=== PATIENT | female | born 1995 | race Two or more races ===

== ENCOUNTER 2024-09-02 11:47 | Outpatient (REF) | payer MEDICAID, SELFPAY ==
[2024-09-02 13:20] LABS: MANUAL DIFF FLAG NO
[2024-09-02 13:28] LABS: Basophils Percent Auto 0.8 % (0-2); Eosinophils Absolute Auto 0.1 X10*3/uL (0.0-0.4); Eosinophils Percent Auto 1.4 % (0-4); Hematocrit 40.1 % (37.0-47.0); Imm Gran Abs Auto 0.01 X10*3/uL (0.00-0.03); Imm Gran Pct Auto 0.3 % (0.0-0.4); Lymphocytes Absolute Auto 1.9 X10*3/uL (1.2-4.9); Lymphocytes Percent Auto 52.7 % (20-40); Mean Corpuscular HGB Conc 32.4 g/dl (31.0-35.0); Mean Corpuscular Hemoglobin 27.9 pg (27.0-33.0); Mean Corpuscular Volume 86.1 fL (80.0-98.0); Mean Platelet Volume 11.1 fL (9.4-12.3); Monocytes Absolute Auto 0.3 X10*3/uL (0.1-1.2); Monocytes Percent Auto 7.3 % (2-11); Neutrophils Absolute Auto 1.4 x10*3/uL (2.0-8.3); Neutrophils Percent Auto 37.5 % (45-73); Platelet Count 265 X10*3/uL (160-400); Red Blood Count 4.66 X10*6/uL (4.20-5.50); Red Cell Distribution Width 12.3 % (11.0-16.0); White Blood Count 3.7 X10*3/uL (4.8-10.8)
[2024-09-02 13:40] LABS: Estimated Average Glucose 97 mg/dL; Hemoglobin A1C 111.3321 umol/L; Total Hemoglobin (HGBA1C) 3522.9772 umol/L
[2024-09-02 14:16] LABS: Alanine Aminotransferase 33 U/L (0-31); Albumin Level 4.3 g/dL (3.5-5.0); Anion Gap 12 (12-20); Aspartate Amino Transferase 28 U/L (5-31); Bilirubin Total 0.7 mg/dL (0.0-1.0); Blood Urea Nitrogen 14 mg/dL (9-16); Calcium 9.5 mg/dL (8.4-10.2); Carbon Dioxide 24 mmol/L (22-29); Chloride 108 mmol/L (96-108); Estimated Glomerular Filt Rate > 60; Glucose Random 80 mg/dL (60-115); Potassium 3.8 mmol/L (3.3-5.1); Sodium 140 mmol/L (135-145); Total Protein 7.6 g/dL (6.5-8.0)
[2024-09-02 14:25] LABS: TSH reflex Free T4 0.94 uIU/mL (0.32-4.0)
--- OUTSIDE RECORDS SUMMARY | 2024-09-02 14:42 | XMS_ITS | Encounter Summary ---
Author Organization [employer] Address [address] [facility] [address] [place] [address] Care Team Providers Care Metal Solderer Name Role Phone Unavailable Primary Care Provider Unavailabl e Reason for Referral * Imaging (Routine) - Pending Review Specialty Diagnoses / Procedures Referred By Contac t Referred To Contact Radiology Diagnoses Epigastric pain Procedures US Abdomen Complete Horacio He MD [address] [place] [address] Phone: tel: fax: Referral ID Status Reason Start Date Expiration Date V isits Requested Visits Authorized [id number] Pending Review 09/02/2024 09/02/2025 1 1 Encounter Details Date Type Department Care Team (Late st Contact Info) Description 09/02/2024 Orders Only [facility] [address] [place], [place] [phone] Horacio He MD [address] [place], [place] [phone] Epigastric pain (Primary Dx) Social History Tobacco Use Types Packs/Day Years Used Date Smoking Tobacco: Never Smokeless Tobacco: Never Alcohol Use Standard Drinks/Week Comments Never 0 (1 standard drink = 0.6 oz pur e alcohol) Comments Unknown Sex and Gender Information Value Date Recorded Sex Assigned at Female 09/02/2024 10:17 AM EDT Legal Sex Female 11:50 AM EDT Gender Identity Female 09/02/2024 10:17 AM EDT Sexual Orientation Straight 09/02/2024 10 :17 AM EDT documented as of this encounter Plan of Treatment Scheduled Orders Name Type Priority Associated Diagnoses Orde r Schedule US Abdomen Complete Imaging Routine Epigastric pain Expected: 09/02/2024, Expires: 09/02/2025 documented as of this encounter Visit Diagnoses Diagnosis Epigastric pain- Primary Abdominal pain, epigastric documented in this encounter
--- OUTSIDE RECORDS SUMMARY | 2024-09-02 14:42 | XMS_ITS | Encounter Summary ---
Author Organization [employer] Address [address] [facility] [address] [place] [address] Care Team Providers Care Density Control Puncher Name Role Phone Unavailable Primary Care Provider Unavailabl e Encounter Details Date Type Department Care Team (Latest Contact Info) Description 09/02/2024 Travel Social History Tobacco Use Types Packs/Day Years [...] as of this encounter Plan of Treatment Not on file documented as of this encounter Visit Diagnoses Not on filedocumented in this encounter
--- OUTSIDE RECORDS SUMMARY | 2024-09-02 14:42 | XMS_ITS | Encounter Summary ---
Author Organization [employer] Address [address] [facility] [address] [place] [address] Care Team Providers Care Internal Affairs Commander Name Role Phone Unavailable Primary Care Provider Unavailabl e Reason for Visit * Reason Comments Abdominal Pain Encounter Details Date Type Department Care Team (Late st Contact Info) Description 09/02/2024 10:40 AM EDT Office Visit [facility] [address] [place], [place] [phone] Horacio He MD [address] [place], [place] [phone] Epigastric pain (Primary Dx); Posterior chest pain; Geographic tongue Social History Tobacco Use Types Packs/Day Years Used Date Smoking Tobacco: Never Smokeless Tobacco: Never Tobacco Cessation:Counseling Given: Not Answered Alcohol Use Standard Drinks/Week Comments Never 0 (1 standard drink = 0.6 oz pur e alcohol) Comments Unknown Sex and Gender Information Value Date Recorded Sex Assigned at Female 09/02/2024 10:17 AM EDT Legal Sex Female 11:50 AM EDT Gender Identity Female 09/02/2024 10:17 AM EDT Sexual Orientation Straight 09/02/2024 10 :17 AM EDT documented as of this encounter Last Filed Vital Signs Vital Sign Reading Time Taken Comments Blood Pressure 134/74 09/02/2024 10:32 AM EDT Pulse 102 09/02/2024 10:32 AM EDT Temperature 38 ??C (100.4 ??F) 09/02/2024 10 :32 AM EDT Respiratory Rate 17 09/02/2024 10:3 2 AM EDT Oxygen Saturation 95% 09/02/2024 10: 32 AM EDT Inhaled Oxygen Concentration - - Weight 93.4 kg (205 lb 12.8 oz) 025 10:32 AM EDT Height - - Body Mass Index - - documented in this encounter Progress Notes * Horacio He MD - 09/02/2024 10:40 AM EDT Images from the original note were not included. Subjective Patient ID: Mustapha Carroll is a 29 y.o. female new patient. 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 Traveled from [place] to [facility] to [place]. Came to [facility] 10/2023. Sales Marketing Manager: Breanne FONTANA Mustapha came to [facility] today because when she was 6 months 1 year ago she she had onset of epigastric pain that radiates to mid back, usually occurs daily after dinner. Epigastric pain is not present now, but she has mild mid upper back pain, worse with movement of torso. Deep inspiration does not change the pain. Has occasional n/v with pain. No fever, cough, URI symptoms, diarrhea, urinary sx. No h/o abd surgery. No family h/o gallstones. Also states that during she developed unusual pattern on her tongue that occasionally hurts when she eats. Lives with and 2 children. LMP=irreg due to Nexplanon. Never smoked. No EtOH. No illicit substances. Has also had areas on dorsum of tongue that are occasionally painful that also started during . The following portions of the chart were reviewed this encounter and updated as appropriate: Review of Systems Constitutional: Negative for fever. Respiratory: Negative for shortness of breath. Cardiovascular: Negative for chest pain. Gastrointestinal: Positive for abdominal pain, nausea and vomiting. Negative for diarrhea. Musculoskeletal: Positive for back pain. Skin: Negative for rash. Neurological: Negative for headaches. Objective Physical Exam HENT: Mouth/Throat: Comments: Tongue: Several areas on the dorsum of confluence irregular flattened areas with no erythema. Abdominal: General: Abdomen is flat. Palpations: Abdomen is soft. Tenderness: There is no abdominal tenderness. There is no right CVA tenderness or left CVA tenderness. Musculoskeletal: Arms: Comments: Mild tenderness to palpation noted in mid upper back as noted above. Procedures Assessment/Plan Diagnoses and all orders for this visit: Epigastric pain UCG neg. U/a neg except for positive RBC. Negative rapid Covid and Influenza tests done because of fever in walk-in clinic. Prescribed acetaminophen. Blood tests, H. pylori stool antigen test ordered. Chest x-ray and abdominal ultrasound ordered. Will call patient with results. Go to ED if pain recurs and does not resolve. I requested [facility] [facility] PCP sharon't. - POCT Rapid COVID Ag - Influenza A (ID NOW Rapid Molecular) - Influenza B (ID NOW Rapid Molecular) - POCT urinalysis dipstick manually resulted - POCT , urine manually resulted - Helicobacter pylori Antigen, EIA, Stool; Future - Hepatitis B Core Antibody, Total; Future - Hepatitis B Surface Antibody, Qualitative; Future - Hepatitis B surface antigen, EIA; Future - Hepatitis C Antibody with Reflex to HCV, RNA, Quantitative, Real-Time PCR; Future - HIV-1/2 Antigen and Antibodies, Fourth Generation, with Reflexes; Future - RPR (Monitor) with Reflex to Titer; Future - T-SPOT??.TB; Future - CBC auto differential; Future - Comprehensive Metabolic Panel; Future - Hemoglobin A1c; Future - TSH with Reflex to Free T4; Future Posterior chest pain Chest x-ray ordered as above. Will call patient with results - XR Chest 2 Views; Future Geographic tongue Prescribed triamcinolone 0.1% oral paste to use as needed for tongue pain. Return to clinic if symptoms worsen. Other orders - triamcinolone (Kenalog) 0.1 % oral paste; Use in the mouth or throat 2 times daily. prn - acetaminophen (Tylenol) 500 MG tablet; Take 2 tablets (1,000 mg) by mouth every 6 (six) hours if needed for moderate pain or fever for up to 25 doses. documented in this encounter Plan of Treatment Pending Results Name Type Priority Associated Diagnoses Date /Time Comprehensive Metabolic Panel Lab Routine Epigastric pain 09/02/2024 11:53 AM EDT TSH with Reflex to Free T4 Lab Routine Epigastric pain 09/02/2024 11:53 AM EDT Scheduled Orders Name Type Priority Associated Diagnoses Orde r Schedule Helicobacter pylori??Antigen, EIA, Stool Lab Routine Epigastric pain Expected: 09/02/2024 (Approximate), Expires: 09/02/2025 Hepatitis B Core Antibody, Total Lab Routine Epigastric pain Expected: 09/02/2024 (Approximate), Expires: 09/02/2025 Hepatitis B Surface Antibody, Qualitative Lab Routine Epigastric pain Expected: 09/02/2024 (Approximate), Expires: 09/02/2025 Hepatitis B surface antigen, EIA Lab Routine Epigastric pain Expected: 09/02/2024 (Approximate), Expires: 09/02/2025 Hepatitis C Antibody with Reflex to HCV, RNA, Quantitative, Real-Time PCR Lab Routine Epigastric pain Expected: 09/02/2024 (Approximate), Expires: 09/02/2025 HIV-1/2 Antigen and Antibodies, Fourth Generation, with Reflexes Lab Routine Epigastric pain Expected: 09/02/2024 (Approximate), Expires: 09/02/2025 RPR (Monitor) with Reflex to??Titer Lab Routine Epigastric pain Expected: 09/02/2024 (Approximate), Expires: 09/02/2025 T-SPOT??.TB Lab Routine Epigastric pain Expected: 09/02/2024 (Approximate), Expires: 09/02/2025 XR Chest 2 Views Imaging Routine Posterior chest pain Expected: 09/02/2024, Expires: 09/02/2025 documented as of this encounter Procedures Procedure Name Priority Date/Time Associated Diagnosis Comments TSH W/REFLEX TO FT4 Routine 09/02/2024 1 1:53 AM EDT Epigastric pain CBC WITH AUTO DIFFERENTIAL Routine 09/02/2024 11:53 AM EDT Epigastric pain HEMOGLOBIN A1C Routine 09/02/2024 11:53 AM EDT Epigastric pain COMPREHENSIVE METABOLIC PANEL Routine 09/02/2024 11:53 AM EDT Epigastric pain POCT INFLUENZA B (ID NOW RAPID MOLECULAR) Routine 09/02/2024 11:10 AM EDT Epigastric pain POCT INFLUENZA A (ID NOW RAPID MOLECULAR) Routine 09/02/2024 11:10 AM EDT Epigastric pain POCT RAPID COVID ANTIGEN Routine 09/02/2024 11:10 AM EDT Epigastric pain POCT , URINE Routine 09/02/2024 11:10 AM EDT Epigastric pain POCT URINALYSIS DIPSTICK Routine 09/02/2024 11:10 AM EDT Epigastric pain documented in this encounter Results * Hemoglobin A1c (09/02/2024 11:53 AM EDT) Hemoglobin A1c 5.0 <6.0 % [facility] Comment:Hemoglobin A1C Refer ence Range Adults: 4.8 - 6.0 % Non diabetic: < 6.0 % Goal: < 7.0 %Additional Action Suggested: > 8.0 %Note: Hemoglobin A1c results are invalid for patients with abnormal amounts of HbF. Blood transfusions may impact the HbA1c concentration in the patient sample. Estimated Average Glucose 97 mg/dL [facility] Comment:eAG = Estimated ave rage glucose which is %A1C expressed asaverage glucose, using the formula of the Y4L-LcaydffRarwhoi Glucose study (ADAG), Diabetes Care, Vol.31,#8,Dec. 2007 Blood Venous blood specimen / Unknown 09/02/2024 11:53 AM EDT 09/02/2024 1:13 PM EDT us Horacio He MD LAB BLOOD ORDERABLES Final Resul t [facility] [address] [place] [phone] * (ABNORMAL) CBC auto differential (09/02/2024 11:53 AM EDT) White Blood Count 3.7(L) 4.8 - 10.8 X10*3/uL [facility] Red Blood Count 4.66 4.20 - 5.50 X10*6/uL [facility] Hemoglobin 13.0 12.0 - 16.0 g/dl [facility] Hematocrit 40.1 37.0 - 47.0 % [facility] Mean Corpuscular Volume 86.1 80.0 - 98.0 fL [facility] Mean Corpuscular Hemoglobin 27.9 27.0 - 33.0 pg [facility] Mean Corpuscular HGB Conc 32.4 31.0 - 35.0 g/dl [facility] Red Cell Distribution Width 12.3 11.0 - 16.0 % [facility] Platelet Count 265 160 - 400 X10*3/uL [facility] Mean Platelet Volume 11.1 9.4 - 12.3 fL [facility] Neutrophils Percent Auto 37.5(L) 45 - 73 % [facility] Imm Gran Pct Auto 0.3 0.0 - 0.4 % [facility] Lymphocytes Percent Auto 52.7(H) 20 - 40 % [facility] Monocytes Percent Auto 7.3 2 - 11 % [facility] Eosinophils Percent Auto 1.4 0 - 4 % [facility] Basophils Percent Auto 0.8 0 - 2 % [facility] NRBC Pct Auto 0.0 0.0 - 0.2 /100WBC [facility] Neutrophils Absolute Auto 1.4(L) 2.0 - 8.3 x10*3/uL [facility] Imm Gran Abs Auto 0.01 0.00 - 0.03 X10*3/uL [facility] Lymphocytes Absolute Auto 1.9 1.2 - 4.9 X10*3/uL [facility] Monocytes Absolute Auto 0.3 0.1 - 1.2 X10*3/uL [facility] Eosinophils Absolute Auto 0.1 0.0 - 0.4 X10*3/uL [facility] Basophils Absolute Auto 0.0 0.0 - 0.2 X10*3/uL [facility] NRBC Abs Auto 0.000 0.0 - 0.012 X10*3/uL [facility] Blood Venous blood specimen / Unknown 09/02/2024 11:53 AM EDT 09/02/2024 1:13 PM EDT us Horacio He MD LAB BLOOD ORDERABLES Final Resul t [facility] [address] [place] [address] [phone] * POCT , urine manually resulted (09/02/2024 11:10 AM EDT) Preg Test, Ur Negative Negative, Indeterminate, None Detected, Invalid, Specimen unsatisfactory for evaluation, Weakly Positive Urine 09/02/2024 11:1 0 AM EDT us Horacio He MD POINT OF CARE TEST ENTER/EDIT OR DERABLES Final Result * (ABNORMAL) POCT urinalysis dipstick manually resulted (09/02/2024 11:10 AM EDT) Pathologist [facility] Color, UA Yellow Clarity, UA Clear Glucose, UA Negative Bilirubin, UA Negative Ketones, UA Negative Spec Grav, UA 1.020 Blood, UA Positive(A) Negative, None Detected Comment:Trace- intact pH, UA 5.5 Protein, UA Negative Urobilinogen, UA 1.0 Leukocytes, UA Negative Negative, Rare, Trace Nitrite, UA Negative Negative, None Detected Urine 09/02/2024 11:1 0 AM EDT us Horacio He MD POINT OF CARE TEST ENTER/EDIT OR DERABLES Final Result * Influenza B (ID NOW Rapid Molecular) (09/02/2024 11:10 AM EDT) [facility] Influenza B Negative Negative, Indeterminate [facility] Swab 09/02/2024 11:1 0 AM EDT us Horacio He MD POINT OF CARE TEST ENTER/EDIT OR DERABLES Final Result Performing Organization Address [facility]/ZIP Co de Phone Number [facility] [address] [place] [phone] * Influenza A (ID NOW Rapid Molecular) (09/02/2024 11:10 AM EDT) [facility] Influenza A Negative Negative, Indeterminate [facility] Swab 09/02/2024 11:1 0 AM EDT us Horacio He MD POINT OF CARE TEST ENTER/EDIT OR DERABLES Final Result Performing Organization Address City/[facility]/ZIP Co de Phone Number [facility] [address] [place] [address] [phone] * POCT Rapid COVID Ag (09/02/2024 11:10 AM EDT) Rapid COVID Ag Negative [facility] Swab 09/02/2024 11:1 0 AM EDT Horacio He MD POINT OF CARE TEST ENTER/EDIT OR DERABLES Final Result Performing Organization Address City/[facility] Co de Phone Number [facility] [address] [place] [address] [phone] documented in this encounter Visit Diagnoses Diagnosis Epigastric pain- Primary Abdominal pain, epigastric Posterior chest pain Geographic tongue documented in this encounter
--- OUTSIDE RECORDS SUMMARY | 2024-09-02 14:42 | XMS_ITS | Encounter Summary ---
Author Organization [employer] Address [address] [facility] [address]t [place] [address] Care Team Providers Care Millinery Copyist Name Role Phone Unavailable Primary Care Provider Unavailabl e Reason for Visit * Reason Onset Date Comments Appointment 09/02/2024 Patient is a new patient and needs a new patient appointment. Encounter Details Date Type Department Care Team (Late st Contact Info) Description 09/02/2024 Telephone [facility] [address] [place], [place] [phone] Pérez Mcbride [place] Appointment (Patient is a new patient and needs a new patient appointment.) Social History Tobacco Use Types Packs/Day Years [...] AM EDT documented as of this encounter Miscellaneous Notes * Telephone Encounter - Paulina España - 09/02/2024 10:24 AM EDT Zero availability. Patient added to [facility] New Patient wait list as of 09/02/24. * Telephone Encounter - Pérez Mcbride [place] - 09/02/2024 10:22 AM EDT Patient is a new patient and needs a new patient appointment. documented in this encounter Plan of Treatment Not on file documented as of this encounter Visit Diagnoses Not on filedocumented in this encounter
--- OUTSIDE RECORDS SUMMARY | 2024-09-02 14:42 | XMS_ITS | Clinical Summary ---
Author Organization [employer] Address [address] [facility] 7t [place] [address] Care Team Providers Care Billboard Erector Helper Name Role Phone Unavailable Primary Care Provider Unavailabl e Allergies No known active allergies Medications triamcinolone (Kenalog) 0.1 % oral paste Use in the mouth or throat 2 times daily. prn 5 g 1 09/02/2024 09/03/19 26 Active acetaminophen (Tylenol) 500 MG tablet Take 2 tablets (1,000 mg) by mouth every 6 (six) hours if needed for moderate pain or fever for up to 25 doses. 50 tablet 09/02/2024 Active Active Problems Problem Noted Date Diagnosed Date Geographic tongue 09/02/2024 Encounters Date Type Department Care Team Description 09/02/2024 10:40 AM EDT Office Visit [facility] [address] [place] [phone] Horacio He MD Epigastric pain (Primary Dx); Posterior chest pain; Geographic tongue 09/02/2024 Orders Only [facility] [address] [place] [address] [phone] Horacio He MD Epigastric pain (Primary Dx) 09/02/2024 Telephone [facility] [address] [place] [phone] Mcbride, [place], [place] Appointment (Patient is a new patient and needs a new patient appointment.) 09/02/2024 Travel from Last 3 Months Social History Tobacco Use Types Packs/Day Years [...] Orientation Straight 09/02/2024 10 :17 AM EDT Last Filed Vital Signs Vital Sign Reading [...] - - Body Mass Index - - Plan of Treatment Health Maintenance Due Date Last Done Comments Depression Screening 1995 HIV Screening 1995 SDOH Screening 1995 Alcohol/Substance Use Screening 2007 Family Planning (PISQ) 2010 Hepatitis C Screening 2013 DTaP/Tdap/Td Vaccines (1 - Tdap) 2014 Hepatitis B Vaccines (1 of 3 - 19+ 3-dose series) 2014 Pap Smear 2016 COVID-19 Vaccine (1 - 2023-2 5 season) 2024 Influenza Vaccine (#1) 2024 Tobacco Screening 09/02/2025 09/02/2024 Zoster Vaccines (1 of 2) 2045 RSV Patients and Pa tients Aged 60 years or older (1 - 1-dose 75+ series) 2070 HIB Vaccines Aged Out No longer eligi ble based on patient's age to complete this topic HPV Vaccines Aged Out No longer eligi ble based on patient's age to complete this topic Hepatitis A Vaccines Aged Out No long er eligible based on patient's age to complete this topic IPV Vaccines Aged Out No longer eligi ble based on patient's age to complete this topic Meningococcal Vaccine Aged Out No agueda juanpablo eligible based on patient's age to complete this topic Pneumococcal Vaccine: Pediat rics (0 to 5 Years) and At-Risk Patients (6 to 49) Years) Aged Out No longer elig ible based on patient's age to complete this topic RSV under 20 months Aged Out No longe r eligible based on patient's age to complete this topic Rotavirus Vaccines Aged Out No longer eligible based on patient's age to complete this topic Procedures Procedure Name Priority Date/Time Associated Diagnosis Comments TSH W/REFLEX TO FT4 Routine 09/02/2024 1 1:53 AM EDT Epigastric pain HEMOGLOBIN A1C Routine 09/02/2024 11:53 AM EDT Epigastric pain COMPREHENSIVE METABOLIC PANEL Routine 09/02/2024 11:53 AM EDT Epigastric pain CBC WITH AUTO DIFFERENTIAL Routine 09/02/2024 11:53 AM EDT Epigastric pain POCT , URINE Routine 09/02/2024 11:10 AM EDT Epigastric pain POCT URINALYSIS DIPSTICK Routine 09/02/2024 11:10 AM EDT Epigastric pain POCT INFLUENZA B (ID NOW RAPID MOLECULAR) Routine 09/02/2024 11:10 AM EDT Epigastric pain POCT INFLUENZA A (ID NOW RAPID MOLECULAR) Routine 09/02/2024 11:10 AM EDT Epigastric pain POCT RAPID COVID ANTIGEN Routine 09/02/2024 11:10 AM EDT Epigastric pain from Last 3 Months Results * (ABNORMAL) CBC auto differential (09/02/2024 11:53 AM EDT) White Blood Count 3.7(L) 4.8 - 10.8 X10*3/uL [facility] Red Blood Count 4.66 4.20 - 5.50 X10*6/uL [facility] Hemoglobin 13.0 12.0 - 16.0 g/dl [facility] Hematocrit 40.1 37.0 - 47.0 % [facility] Mean Corpuscular Volume 86.1 80.0 - 98.0 fL [facility] Mean Corpuscular Hemoglobin 27.9 27.0 - 33.0 pg [facility] Mean Corpuscular HGB Conc 32.4 31.0 - 35.0 g/dl [facility] Red Cell Distribution Width 12.3 11.0 - 16.0 % [facility] Platelet Count 265 160 - 400 X10*3/uL [facility] Mean Platelet Volume 11.1 9.4 - 12.3 fL [facility] Neutrophils Percent Auto 37.5(L) 45 - 73 % [facility] Imm Gran Pct Auto 0.3 0.0 - 0.4 % [facility] Lymphocytes Percent Auto 52.7(H) 20 - 40 % [facility] Monocytes Percent Auto 7.3 2 - 11 % [facility] Eosinophils Percent Auto 1.4 0 - 4 % [facility] Basophils Percent Auto 0.8 0 - 2 % [facility] NRBC Pct Auto 0.0 0.0 - 0.2 /100WBC [facility] Neutrophils Absolute Auto 1.4(L) 2.0 - 8.3 x10*3/uL [facility] Imm Gran Abs Auto 0.01 0.00 - 0.03 X10*3/uL [facility] Lymphocytes Absolute Auto 1.9 1.2 - 4.9 X10*3/uL [facility] Monocytes Absolute Auto 0.3 0.1 - 1.2 X10*3/uL [facility] Eosinophils Absolute Auto 0.1 0.0 - 0.4 X10*3/uL [facility] Basophils Absolute Auto 0.0 0.0 - 0.2 X10*3/uL [facility] NRBC Abs Auto 0.000 0.0 - 0.012 X10*3/uL [facility] Blood Venous blood specimen / Unknown 09/02/2024 11:53 AM EDT 09/02/2024 1:13 PM EDT us Horacio He MD LAB BLOOD ORDERABLES Final Resul t [facility] [address] [place], [place] [phone] * Hemoglobin A1c (09/02/2024 11:53 AM EDT) Hemoglobin A1c 5.0 <6.0 % [facility] Comment:Hemoglobin A1C Refer ence Range Adults: 4.8 - 6.0 % Non diabetic: < 6.0 % Goal: < 7.0 %Additional Action Suggested: > 8.0 %Note: Hemoglobin A1c results are invalid for patients with abnormal amounts of HbF. Blood transfusions may impact the HbA1c concentration in the patient sample. Estimated Average Glucose 97 mg/dL [facility] Comment:eAG = Estimated ave rage glucose which is %A1C expressed asaverage glucose, using the formula of the C9G-VbdfuoxNbzovak Glucose study (ADAG), Diabetes Care, Vol.31,#8,2007 Blood Venous blood specimen / Unknown 09/02/2024 11:53 AM EDT 09/02/2024 1:13 PM EDT us Horacio He MD LAB BLOOD ORDERABLES Final Resul t Performing Organization Address [facility]/ZIP Co de Phone Number [facility] [address] [place] [phone] * Influenza B (ID NOW Rapid Molecular) (09/02/2024 11:10 AM EDT) [facility] Influenza B Negative Negative, Indeterminate [facility] Swab 09/02/2024 11:1 0 AM EDT us Horacio He MD POINT OF CARE TEST ENTER/EDIT OR DERABLES Final Result Performing Organization Address [facility] Co de Phone Number [facility] [address] [place] [phone] * Influenza A (ID NOW Rapid Molecular) (09/02/2024 11:10 AM EDT) [facility] Influenza A Negative Negative, Indeterminate [facility] Swab 09/02/2024 11:1 0 AM EDT us Horacio He MD POINT OF CARE TEST ENTER/EDIT OR DERABLES Final Result Performing Organization Address City/[facility]/ZIP Co de Phone Number [facility] [address] [place] [address] [phone] * POCT Rapid COVID Ag (09/02/2024 11:10 AM EDT) Rapid COVID Ag Negative [facility] Swab 09/02/2024 11:1 0 AM EDT us Horacio He MD POINT OF CARE TEST ENTER/EDIT OR DERABLES Final Result Performing Organization Address [facility] de Phone Number [facility] [address] [place] [address] [phone] * POCT , urine manually resulted (09/02/2024 11:10 AM EDT) Preg Test, Ur Negative Negative, Indeterminate, None Detected, Invalid, Specimen unsatisfactory for evaluation, Weakly Positive Urine 09/02/2024 11:1 0 AM EDT us Horacio He MD POINT OF CARE TEST ENTER/EDIT OR DERABLES Final Result * (ABNORMAL) POCT urinalysis dipstick manually resulted (09/02/2024 11:10 AM EDT) Color, UA Yellow Clarity, UA Clear Glucose, [...] CARE TEST ENTER/EDIT OR DERABLES Final Result from Last [address] [place] [place] [address] C3
[2024-09-02 18:02] LABS: Alkaline Phosphatase 116 U/L (39-117)
[2024-09-03 08:30] LABS: HBS Num1 1.87 mIU/mL (0-7.99); HBc Num1 0.07 S/CO (0.00-0.79); HBsAGNum1 0.48 S/CO (0.00-0.99); HIV AB/AG Nonreactive (Nonreactive); HIV Num 1 0.07 S/CO (0.00-0.99); Hepatitis B Core Antibody Nonreactive (Nonreactive); Hepatitis B Surface Antigen Negative (Negative); ~HepC Num1 0.13 S/CO (0.00-0.79); ~Hepatitis B Surface Antibody NONREACTIVE (Nonreactive); ~Hepatitis C Antibody Nonreactive (Nonreactive)
[2024-09-03 09:54] LABS: RPR Rapid Plasma Reagin NON-REACTIVE (NON-REACTIVE)
[2024-09-05 16:39] LABS: TS Negative Control Passed; TS Panel A 76; TS Panel B 110; TS Positive Control Passed; TSpotTB Positive (Negative)
== END 2024-09-02 11:48 | disposition home or self-care (01) ==
LOC: HO.HHCL 11:47
PROVIDERS: Visit Provider Emergency Medicine
DX: R10.13 Epigastric pain (principal); Z11.59 Encounter for screening for other viral diseases; Z11.1 Encounter for screening for respiratory tuberculosis
CPT/HCPCS: 36415; 80053; 83036; 84443; 85025; 86481; 86592; 86704; 86706; 86803; 87340; 87389

== ENCOUNTER 2024-09-04 13:50 | Outpatient (REF) | payer MEDICAID, SELFPAY ==
--- OUTSIDE RECORDS SUMMARY | 2024-09-04 16:54 | XMS_ITS | Encounter Summary ---
Author Organization [employer] Address [address] [facility] 7t [place] [address] Care Team Providers Care Occupational Health And Safety Officer Name Role Phone Unavailable Primary Care Provider [...]
--- OUTSIDE RECORDS SUMMARY | 2024-09-04 16:54 | XMS_ITS | Encounter Summary ---
Author Organization [employer] Address [address] [facility] [address]t [place] [address] Care Team Providers Care Raw Sampler Name Role Phone Unavailable Primary Care Provider Unavailabl e Reason for Referral * Imaging (Routine) - Authorized Specialty Diagnoses / Procedures Referred By Contac t Referred To Contact Radiology Diagnoses Epigastric pain Procedures US Abdomen Complete Horacio He MD [address] [place] [address] Phone: tel: fax: [address] Phone: tel: fax: Referral ID Status Reason Start Date Expiration Date V isits Requested Visits Authorized [id number] Authorized 09/02/2024 09/02/2025 1 1 Encounter Details Date Type Department Care Team (Late st Contact Info) Description 09/02/2024 Orders Only [facility] [address], [place] [phone] Horacio He MD [address], [place] [phone] Epigastric pain (Primary Dx) Social History Tobacco [...]
--- OUTSIDE RECORDS SUMMARY | 2024-09-04 16:54 | XMS_ITS | Clinical Summary ---
Author Organization [employer] Address [address] [facility] 7t [place] [address] Care Team Providers Care Tromper Name Role Phone Unavailable Primary Care Provider [...] Description 09/02/2024 10:40 AM EDT Office Visit [facility] [address] [place] [phone] Horacio He MD Epigastric pain (Primary Dx); Posterior chest pain; Geographic tongue 09/02/2024 Orders Only [facility] [address] [place] [phone] Horacio He MD Epigastric pain (Primary Dx) 09/02/2024 Telephone [facility] [address] [place] [phone] [place], [place], [place] Appointment (Patient is a new patient [...] Date Last Done Comments Depression Screening 1995 SDOH Screening 1995 Alcohol/Substance Use Screening 2007 Family Planning (PISQ) 2010 DTaP/Tdap/Td Vaccines (1 - Tdap) 2014 Hepatitis B Vaccines (1 of 3 - 19+ 3-dose series) 2014 Pap Smear 2016 COVID-19 Vaccine (1 - 2023-2 5 season) 2024 Influenza Vaccine (#1) 2024 Tobacco Screening 09/02/2025 09/02/2024 Zoster Vaccines (1 of 2) 2045 RSV Patients and Pa tients Aged 60 years or older (1 - 1-dose 75+ series) 2070 HIV Screening Completed 09/02/2024 Hepatitis C Screening Completed 09/02/2024 HIB Vaccines Aged Out No longer eligi [...] Routine 09/02/2024 11:53 AM EDT Epigastric pain RPR (MONITOR) W/REFL TITER Routine 09/02/2024 11:53 AM EDT Epigastric pain HIV 1/2 ANTIGEN/ANTIBODY, FOURTH GENERATION W/RFL Routine 09/02/2024 11:53 AM EDT Epigastric pain HEPATITIS C AB W/REFL TO HCV RNA, QN, PCR Routine 09/02/2024 11:53 AM EDT Epigastric pain HEPATITIS B SURFACE ANTIGEN, EIA Routine 09/02/2024 11:53 AM EDT Epigastric pain HEPATITIS B SURFACE ANTIBODY, QUALITATIVE Routine 09/02/2024 11:53 AM EDT Epigastric pain HEPATITIS B CORE AB TOTAL Routine 09/02/2024 11:53 AM EDT Epigastric pain [...] pain from Last 3 Months Results * TSH with Reflex to Free T4 (09/02/2024 11:53 AM EDT) TSH reflex Free T4 0.94 0.32 - 4.0 uIU/mL [facility] Blood Venous blood specimen / Unknown 09/02/2024 11:53 AM EDT 09/02/2024 1:10 PM EDT us Horacio He MD LAB BLOOD ORDERABLES Final Resul t [facility] [address] [place] [address] [phone] * (ABNORMAL) CBC auto differential (09/02/2024 11:53 AM EDT) White Blood Count 3.7(L) 4.8 - 10.8 X10*3/uL [facility] Red Blood Count 4.66 4.20 - 5.50 X10*6/uL [facility] Hemoglobin 13.0 12.0 - 16.0 g/dl [facility] Hematocrit 40.1 37.0 - 47.0 % [facility] Mean Corpuscular Volume 86.1 80.0 - 98.0 fL [facility] Mean Corpuscular Hemoglobin 27.9 27.0 - 33.0 pg [facility] Mean Corpuscular HGB Conc 32.4 31.0 - 35.0 g/dl [facility] Red Cell Distribution Width 12.3 11.0 - 16.0 % [facility] Platelet Count 265 160 - 400 X10*3/uL [facility] Mean Platelet Volume 11.1 9.4 - 12.3 fL [facility] Neutrophils Percent Auto 37.5(L) 45 - 73 % [facility] Imm Gran Pct Auto 0.3 0.0 - 0.4 % [facility] Lymphocytes Percent Auto 52.7(H) 20 - 40 % [facility] Monocytes Percent Auto 7.3 2 - 11 % [facility] Eosinophils Percent Auto 1.4 0 - 4 % [facility] Basophils Percent Auto 0.8 0 - 2 % [facility] NRBC Pct Auto 0.0 0.0 - 0.2 /100WBC [facility] Neutrophils Absolute Auto 1.4(L) 2.0 - 8.3 x10*3/uL [facility] Imm Gran Abs Auto 0.01 0.00 - 0.03 X10*3/uL [facility] Lymphocytes Absolute Auto 1.9 1.2 - 4.9 X10*3/uL [facility] Monocytes Absolute Auto 0.3 0.1 - 1.2 X10*3/uL [facility] Eosinophils Absolute Auto 0.1 0.0 - 0.4 X10*3/uL [facility] Basophils Absolute Auto 0.0 0.0 - 0.2 X10*3/uL [facility] NRBC Abs Auto 0.000 0.0 - 0.012 X10*3/uL [facility] Blood Venous blood specimen / Unknown 09/02/2024 11:53 AM EDT 09/02/2024 1:13 PM EDT us Horacio He MD LAB BLOOD ORDERABLES Final Resul t [facility] [address] [place], [place] [phone] * Hepatitis C Antibody with Reflex to HCV, RNA, Quantitative, Real-Time PCR (09/02/2024 11:53 AM EDT) Hepatitis C Antibody Nonreactive Nonreactive [facility] Comment:Antibodies to HCV no t detected; does not exclude early acuteHCV infection. Blood Venous blood specimen / Unknown 09/02/2024 11:53 AM EDT 09/02/2024 1:10 PM EDT us Horacio He MD LAB BLOOD ORDERABLES Final Resul t Performing Organization Address [facility] de Phone Number [facility] [address] [place] [phone] * Hepatitis B surface antigen, EIA (09/02/2024 11:53 AM EDT) Hepatitis B Surface Ag Negative Negative [facility] Blood Venous blood specimen / Unknown 09/02/2024 11:53 AM EDT 09/02/2024 1:10 PM EDT us Horacio He MD LAB BLOOD ORDERABLES Final Resul t Performing Organization Address [facility] Phone Number [facility] [address] [place] [address] [phone] * Hepatitis B Core Antibody, Total (09/02/2024 11:53 AM EDT) Hepatitis B Core Antibody Nonreactive Nonreactive [facility] Blood Venous blood specimen / Unknown 09/02/2024 11:53 AM EDT 09/02/2024 1:10 PM EDT us Horacio He MD LAB BLOOD ORDERABLES Final Resul t Performing Organization Address [facility] de Phone Number [facility] [address] [place] [address] [phone] * RPR (Monitor) with Reflex to??Titer (09/02/2024 11:53 AM EDT) RPR (Monitor) w/Refl Titer NON-REACTI VE NON-REACT RAPHAEL [facility] Comment:THIS TEST WAS PERFOR MED AT:[facility] [place] [phone] TOSCANO MD Rapid Plasma Reagin Ab Titer TNP [facility] Blood Venous blood specimen / Unknown 09/02/2024 11:53 AM EDT 09/02/2024 1:13 PM EDT us Horacio He MD LAB BLOOD ORDERABLES Final Resul t Performing Organization Address [facility]/ZIP Co de Phone Number [facility] [address] [place] [phone] * HIV-1/2 Antigen and Antibodies, Fourth Generation, with Reflexes (09/02/2024 11:53 AM EDT) HIV AB/AG Nonreactive Nonreactive [facility] Comment:HIV-1 p24 Ag and/or HIV-1/HIV-2 Ab not detected.A test result that is nonreactive does not exclude thepossibility of exposure to or infection with HIV-1 and/orHIV-2. Nonreactive results in this assay for individualswith prior exposure to HIV-1 and/or HIV-2 may be due toantigen and antibody levels that are below the limit ofdetection of this assay.The HastifyniEasel HIV Ag/Ab Combo assay result andsupplemental assay results should be interpreted inconjunction with the patient's clinical presentation,history and other laboratory results. If the results areinconsistent with clinical evidence, additional testing issuggested to confirm the result. Blood Venous blood specimen / Unknown 09/02/2024 11:53 AM EDT 09/02/2024 1:10 PM EDT us Horacio He MD LAB BLOOD ORDERABLES Final Resul t Performing Organization Address City/[facility]/ZIP Co de Phone Number [facility] [address] [place] [phone] * Hepatitis B Surface Antibody, Qualitative (09/02/2024 11:53 AM EDT) ~Hepatitis B Surface Antibody NONREACTIVE Nonreactive [facility] Comment:Nonreactive: < 8.00 mIU/mL Blood Venous blood specimen / Unknown 09/02/2024 11:53 AM EDT 09/02/2024 1:10 PM EDT us Horacio He MD LAB BLOOD ORDERABLES Final Resul t Performing Organization Address [facility] Co de Phone Number [facility] [address] [place] [phone] * Hemoglobin A1c (09/02/2024 11:53 AM EDT) Hemoglobin A1c 5.0 <6.0 % [facility] Comment:Hemoglobin A1C Refer ence Range Adults: 4.8 - 6.0 % Non diabetic: < 6.0 % Goal: < 7.0 %Additional Action Suggested: > 8.0 %Note: Hemoglobin A1c results are invalid for patients with abnormal amounts of HbF. Blood transfusions may impact the HbA1c concentration in the patient sample. Estimated Average Glucose 97 mg/dL [facility] Comment:eAG = Estimated ave rage glucose which is %A1C expressed asaverage glucose, using the formula of the I2Q-YkcpduuWxcnahv Glucose study (ADAG), Diabetes Care, Vol.31,#8,Dec. 2007 Blood Venous blood specimen / Unknown 09/02/2024 11:53 AM EDT 09/02/2024 1:13 PM EDT us Horacio He MD LAB BLOOD ORDERABLES Final Resul t Performing Organization Address [facility] de Phone Number [facility] [address] [place] [phone] * (ABNORMAL) Comprehensive Metabolic Panel (09/02/2024 11:53 AM EDT) Sodium 140 135 - 145 mmol/L [facility] Potassium 3.8 3.3 - 5.1 mmol/L [facility] Chloride 108 96 - 108 mmol/L [facility] Carbon Dioxide 24 22 - 29 mmol/L [facility] Anion Gap 12 12 - 20 [facility] Urea Nitrogen (BUN) 14 9 - 16 mg/dL [facility] Creatinine, Serum 0.76 0.5 - 1.4 mg/dL [facility] Estimated Glomerular Filt Rate >60 [facility] Comment:Chronic Kidney Disea se: Estimated GFR < 60 mL/min/[id number] Kidney Disease: Estimated GFR < 15 mL/min/1.73m2 Glucose 80 60 - 115 mg/dL [facility] Calcium 9.5 8.4 - 10.2 mg/dL [facility] Bilirubin, Total 0.7 0.0 - 1.0 mg/dL [facility] Aspartate Amino Transferase 28 5 - 31 U/L [facility] Alanine Aminotransferase 33(H) 0 - 31 U/L [facility] Total Protein 7.6 6.5 - 8.0 g/dL [facility] Albumin Level 4.3 3.5 - 5.0 g/dL [facility] Alkaline Phosphatase 116 39 - 117 U/L [facility] Blood Venous blood specimen / Unknown 09/02/2024 11:53 AM EDT 09/02/2024 1:10 PM EDT us Horacio He MD LAB BLOOD ORDERABLES Final Resul t Performing Organization Address City/[facility]/ZIP Co de Phone Number [facility] [address] [place] [phone] * Influenza B (ID NOW Rapid Molecular) (09/02/2024 11:10 AM EDT) Pathologist [facility] Influenza B Negative Negative, Indeterminate [facility] Swab 09/02/2024 11:1 0 AM EDT us Horacio He MD POINT OF CARE TEST ENTER/EDIT OR DERABLES Final Result Performing Organization Address [facility] Co de Phone Number [facility] [address] [place] [phone] * Influenza A (ID NOW Rapid Molecular) (09/02/2024 11:10 AM EDT) Pathologist [facility] Influenza A Negative Negative, Indeterminate [facility] Swab 09/02/2024 11:1 0 AM EDT us Horacio He MD POINT OF CARE TEST ENTER/EDIT OR DERABLES Final Result Performing Organization Address [facility]/ZIP Co de Phone Number [facility] [address] [place] [phone] * POCT Rapid COVID Ag (09/02/2024 11:10 AM EDT) Rapid COVID Ag Negative [facility] Swab 09/02/2024 11:1 0 AM EDT us Horacio He MD POINT OF CARE TEST ENTER/EDIT OR DERABLES Final Result Performing Organization Address [facility] de Phone Number [facility] [address] [place] [address] [phone] * POCT , urine manually resulted [...] Detected Urine 09/02/2024 11:1 0 AM EDT Horacio He MD POINT OF CARE TEST ENTER/EDIT OR DERABLES Final Result from Last 3 Months Insurance [facility] C3
--- OUTSIDE RECORDS SUMMARY | 2024-09-04 16:54 | XMS_ITS | Encounter Summary ---
Author Organization [employer] Address [address] [facility] [address] [place] [address] Care Team Providers Care Medical Information Officer Name Role Phone Unavailable Primary Care Provider Unavailabl e Reason for Visit * Reason Comments Abdominal Pain Encounter Details Date Type Department Care Team (Late st Contact Info) Description 09/02/2024 10:40 AM EDT Office Visit [facility] [address], [place] [phone] Horacio He MD [address] [place], [place] [phone] Epigastric pain (Primary Dx); Posterior chest pain; [...] a 29 y.o. female new patient. 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 Traveled from [facility] to [facility] to [place]. Came to [place] 10/2023. Clinical Assoc: Breanne FONTANA Mustapha came to [facility] today because when she was 6 [...] recurs and does not resolve. I requested GIFT MANAGER PCP sharon't. - POCT Rapid COVID Ag [...] documented in this encounter Plan of Treatment Scheduled Orders [...] pain documented in this encounter Results * TSH with Reflex to Free T4 (09/02/2024 11:53 AM EDT) TSH reflex Free T4 0.94 0.32 - 4.0 uIU/mL [facility] Blood Venous blood specimen / Unknown 09/02/2024 11:53 AM EDT 09/02/2024 1:10 PM EDT us Horacio He MD LAB BLOOD ORDERABLES Final Resul t Performing Organization Address [facility] Co de Phone Number [facility] [address] [place] [phone] * Hemoglobin A1c (09/02/2024 11:53 AM EDT) Hemoglobin A1c 5.0 <6.0 % [facility] Comment:Hemoglobin A1C Refer ence Range [...] asaverage glucose, using the formula of the C7E-BzqnlakZycjdht Glucose study (ADAG), Diabetes Care, Vol.31,#8,Dec. 2007 Blood Venous blood specimen / Unknown 09/02/2024 11:53 AM EDT 09/02/2024 1:13 PM EDT us Horacio He MD LAB BLOOD ORDERABLES Final Resul t Performing Organization Address [facility] Co de Phone Number [facility] [address] [place] [phone] * (ABNORMAL) Comprehensive Metabolic Panel (09/02/2024 11:53 AM EDT) Sodium 140 135 - 145 mmol/L [facility] Potassium 3.8 3.3 - 5.1 mmol/L [facility] Chloride 108 96 - 108 mmol/L [facility] Carbon Dioxide 24 22 - 29 mmol/L [facility] Anion Gap 12 12 - 20 [facility] Urea Nitrogen (BUN) 14 9 - 16 mg/dL [facility] Creatinine, Serum 0.76 0.5 - 1.4 mg/dL [facility] Estimated Glomerular Filt Rate >60 [facility] Comment:Chronic Kidney Disea se: Estimated GFR < 60 mL/min/1.17x3Mlydte Kidney Disease: Estimated GFR < 15 mL/min/1.73m2 Glucose 80 60 - 115 mg/dL [facility] Calcium 9.5 8.4 - 10.2 mg/dL [facility] Bilirubin, Total 0.7 0.0 - 1.0 mg/dL [facility] Aspartate Amino Transferase 28 5 - 31 U/L [facility] Alanine Aminotransferase 33(H) 0 - 31 U/L [facility] Total Protein 7.6 6.5 - 8.0 g/dL [facility] Albumin Level 4.3 3.5 - 5.0 g/dL [facility] Alkaline Phosphatase 116 39 - 117 U/L [facility] Blood Venous blood specimen / Unknown 09/02/2024 11:53 AM EDT 09/02/2024 1:10 PM EDT us Horacio He MD LAB BLOOD ORDERABLES Final Resul t Performing Organization Address City/State/[facility] Co de Phone Number [facility] [address] [place] [phone] * (ABNORMAL) CBC auto differential (09/02/2024 [...] ORDERABLES Final Resul t Performing Organization Address [facility] Co de Phone Number [facility] [address] [place] [phone] * RPR (Monitor) with Reflex to??Titer (09/02/2024 11:53 AM EDT) RPR (Monitor) w/Refl Titer NON-REACTI VE NON-REACT RAPHAEL [facility] Comment:THIS TEST WAS PERFOR MED AT:[facility] [place] [id number] TOSCANO MD Rapid Plasma Reagin Ab Titer TNP [facility] Blood Venous blood specimen / Unknown 09/02/2024 11:53 AM EDT 09/02/2024 1:13 PM EDT us Horacio He MD LAB BLOOD ORDERABLES Final Resul t Performing Organization Address [facility] Co de Phone Number [facility] [address] [place] [phone] * HIV-1/2 Antigen and Antibodies, Fourth Generation, with Reflexes (09/02/2024 11:53 AM EDT) HIV AB/AG Nonreactive Nonreactive [facility] Comment:HIV-1 p24 Ag and/or HIV-1/HIV-2 Ab not detected.A test result that is nonreactive does not exclude thepossibility of exposure to or infection with HIV-1 and/orHIV-2. Nonreactive results in this assay for individualswith prior exposure to HIV-1 and/or HIV-2 may be due toantigen and antibody levels that are below the limit ofdetection of this assay.The GIG[employer]art[employer]seek HIV Ag/Ab Combo assay result andsupplemental assay results should be interpreted inconjunction with the patient's clinical presentation,history and other laboratory results. If the results areinconsistent with clinical evidence, additional testing issuggested to confirm the result. Blood Venous blood specimen / Unknown 09/02/2024 11:53 AM EDT 09/02/2024 1:10 PM EDT us Horacio He MD LAB BLOOD ORDERABLES Final Resul t Performing Organization Address [facility] de Phone Number [facility] [address] [place] [phone] * Hepatitis C Antibody with Reflex to HCV, RNA, Quantitative, Real-Time PCR (09/02/2024 11:53 AM EDT) Pathologist [facility] Hepatitis C Antibody Nonreactive Nonreactive [facility] Comment:Antibodies to HCV no t detected; does not exclude early acuteHCV infection. Blood Venous blood specimen / Unknown 09/02/2024 11:53 AM EDT 09/02/2024 1:10 PM EDT us Horacio He MD LAB BLOOD ORDERABLES Final Resul t Performing Organization Address [facility] de Phone Number [facility] [address] [place] [phone] * Hepatitis B surface antigen, EIA (09/02/2024 11:53 AM EDT) Pathologist [facility] Hepatitis B Surface Ag Negative Negative [facility] Blood Venous blood specimen / Unknown 09/02/2024 11:53 AM EDT 09/02/2024 1:10 PM EDT us Horacio He MD LAB BLOOD ORDERABLES Final Resul t Performing Organization Address [facility] de Phone Number [facility] [address] [place] [phone] * Hepatitis B Surface Antibody, Qualitative (09/02/2024 11:53 AM EDT) ~Hepatitis B Surface Antibody NONREACTIVE Nonreactive [facility] Comment:Nonreactive: < 8.00 mIU/mL Blood Venous blood specimen / Unknown 09/02/2024 11:53 AM EDT 09/02/2024 1:10 PM EDT us Horacio He MD LAB BLOOD ORDERABLES Final Resul t Performing Organization Address City/[facility]/ZIP Co de Phone Number [facility] [address] [place] [phone] * Hepatitis B Core Antibody, Total (09/02/2024 11:53 AM EDT) Hepatitis B Core Antibody Nonreactive Nonreactive [facility] Blood Venous blood specimen / Unknown 09/02/2024 11:53 AM EDT 09/02/2024 1:10 PM EDT us Horacio He MD LAB BLOOD ORDERABLES Final Resul t Performing Organization Address [facility] Co de Phone Number [facility] [address] [place] [phone] * POCT , urine manually resulted (09/02/2024 11:10 AM EDT) Preg Test, Ur Negative Negative, Indeterminate, None Detected, Invalid, Specimen unsatisfactory for evaluation, Weakly Positive Urine 09/02/2024 11:1 0 AM EDT Result Romy He MD POINT OF CARE TEST ENTER/EDIT [...] Detected Urine 09/02/2024 11:1 0 AM EDT Result Romy He MD POINT OF CARE TEST ENTER/EDIT OR DERABLES Final Result * Influenza B (ID NOW Rapid Molecular) (09/02/2024 11:10 AM EDT) [facility] Influenza B Negative Negative, Indeterminate [facility] Swab 09/02/2024 11:1 0 AM EDT us Horacio He MD POINT OF CARE TEST ENTER/EDIT OR DERABLES Final Result Performing Organization Address City/[facility]/ZIP Co de Phone Number [facility] [address] [place] [phone] * Influenza A (ID NOW Rapid Molecular) (09/02/2024 11:10 AM EDT) [facility] Influenza A Negative Negative, Indeterminate [facility] Swab 09/02/2024 11:1 0 AM EDT us Horacio He MD POINT OF CARE TEST ENTER/EDIT OR DERABLES Final Result Performing Organization Address [facility] Co de Phone Number [facility] [address] [place] [phone] * POCT Rapid COVID Ag (09/02/2024 11:10 AM EDT) [facility] Rapid COVID Ag Negative [facility] Swab 09/02/2024 11:1 0 AM EDT us Horacio He MD POINT OF CARE TEST ENTER/EDIT OR DERABLES Final Result Performing Organization Address [facility] Co de Phone Number [facility] [address] [place] [phone] documented in this encounter Visit Diagnoses Diagnosis Epigastric pain- Primary Abdominal pain, epigastric Posterior chest pain Geographic tongue documented in this encounter
--- OUTSIDE RECORDS SUMMARY | 2024-09-04 16:54 | XMS_ITS | Encounter Summary ---
Author Organization [employer] Address [address] [facility] [address] [place] [address] Care Team Providers Care Social Services Designee Name Role Phone Unavailable Primary Care Provider Unavailabl e Reason for Visit * Reason Onset Date Comments Appointment 09/02/2024 Patient is a new patient and needs a new patient appointment. Encounter Details Date Type Department Care Team (Late st Contact Info) Description 09/02/2024 Telephone [facility] [address], [place] [phone] Pérez Mcbride [place] Appointment (Patient is a [...] AM EDT Zero availability. Patient added to [facility] New Patient wait list as of 09/02/24. * Telephone Encounter - Pérez Mcbride [place] - 09/02/2024 10:22 AM EDT Patient is a new patient and needs a new patient appointment. documented in this encounter Plan of Treatment Not on file documented as of this encounter Visit Diagnoses Not on filedocumented in this encounter
== END 2024-09-04 13:51 | disposition home or self-care (01) ==
LOC: HO.HHCLNP 13:50
PROVIDERS: Visit Provider Emergency Medicine
DX: R10.13 Epigastric pain (principal)
CPT/HCPCS: 87338